=== PATIENT | female | born 1980 | race Caucasian/White ===

== ENCOUNTER 2020-04-06 07:30 | Emergency (ER) | payer OTHER ==
[~2020-04-06 07:30] MED LIST: METOPROLOL TART25 M1 PO
[2020-04-06 09:27] VITALS: BP 136/95
== END 2020-04-06 09:27 | disposition home or self-care (01) ==
LOC: ED 07:30
DX: S93.401A Sprain of unspecified ligament of right ankle, initial encounter (principal); S16.1XXA Strain of muscle, fascia and tendon at neck level, initial encounter; S20.221A Contusion of right back wall of thorax, initial encounter; W19.XXXA Unspecified fall, initial encounter; Y93.89 Activity, other specified; Y92.89 Other specified places as the place of occurrence of the external cause; Y99.8 Other external cause status